=== PATIENT | male | born 2000 | race Caucasian/White ===

== ENCOUNTER 2020-12-20 10:57 | Inpatient (IN) | payer OTHER ==
[2020-12-20] MEDS ORDERED: LACTATED RINGERS SOLUTION 1,000 ML IV STA (11:56)
[2020-12-20] MEDS ORDERED: ACETAMINOPHEN 1000 MG/100 ML VIAL (NON FORMULARY) IVPB ONE (11:56)
[2020-12-20] MEDS ORDERED: FAMOTIDINE 20 MG/50 ML IVPB 20 MG/50 ML MG IVPB ONE ×2 (11:56→12:32)
[2020-12-20] MEDS ORDERED: ACETAMINOPHEN INJECTION 100 ML IVPB ONE ×2 (12:31→22:30)
[2020-12-20 13:46] LABS: BASO % 0.4 % (0-2.0); HEMATOCRIT 45.4 % (35.4-49); HEMOGLOBIN 15.2 GM/dL (11.7-16.9); LYMPH % 5.3 % (8-40); MCH 27.8 pg (25.7-33.7); MCHC 33.4 g/dl (32.0-35.9); MEAN CELL VOLUME 83.1 fl (80-96); MEAN PLT VOLUME 9.9 fl (7.5-11.1); MONO % 5.6 % (3.8-10.2); NEUT % 88.7 % (42.8-82.8); PLATELET COUNT 254 K/MM3 (134-434); RBC 5.47 M/mm3 (4.00-5.60); RDW 13.4 % (11.9-15.9); WHITE BLOOD COUNT 27.9 K/mm3 (4.0-10.0)
[2020-12-20 14:08] LABS: POTASSIUM 3.9 mmol/L (3.5-5.1)
[2020-12-20 14:09] LABS: CALCIUM 9.8 mg/dL (8.5-10.1)
[2020-12-20 14:10] LABS: ALBUMIN 4.3 g/dl (3.4-5.0); BLOOD UREA NITROGEN 8.1 mg/dL (7-18)
[2020-12-20 14:13] LABS: CREATININE 0.8 mg/dL (0.55-1.3)
[2020-12-20 14:14] LABS: BILIRUBIN,TOTAL 1.5 mg/dL (0.2-1)
[2020-12-20 14:31] LABS: ANISOCYTOSIS 1+; MACROCYTOSIS 0; PLATELET ESTIMATE NORMAL
[2020-12-20] MEDS ORDERED: PIPERACILLIN/TAZOB 3.375 GM 3.375 GM/50 ML BAG IVPB ONE (16:28)
[2020-12-20] MEDS ORDERED: PIPERACILLIN/TAZOB 3.375 GM 3.375 GM in DEXTROSE 5%-WATER - 50 ML IVPB ONE (16:30)
[2020-12-20] MEDS ORDERED: SODIUM CHLORIDE 1,000 ML IV SCH (17:45)
[2020-12-20 18:14] LABS: URINE APPEARANCE CLEAR; URINE BILIRUBIN NEGATIVE (NEGATIVE); URINE COLOR YELLOW; URINE GLUCOSE (UA) NEGATIVE (NEGATIVE); URINE KETONE NEGATIVE (NEGATIVE); URINE LEUK ESTERASE NEGATIVE (NEGATIVE); URINE NITRITE NEGATIVE (NEGATIVE); URINE PROTEIN NEGATIVE (NEGATIVE); URINE UROBILINOGEN 0.2 mg/dL (0.2-1.0)
[2020-12-20] MEDS ORDERED: ACETAMINOPHEN 1000 MG/100 ML VIAL (NON FORMULARY) IVPB PRN (18:15)
[2020-12-20] MEDS ORDERED: ROCURONIUM BROMIDE 100 MG/10 ML VIAL ONE (20:24)
[2020-12-20] MEDS ORDERED: SUCCINYLCHOLINE CHLORIDE 200 MG/10 ML SYRINGE ONE (20:24)
[2020-12-20] MEDS ORDERED: MIDAZOLAM HCL 2 MG/2 ML SINGLE DOSE VIAL ONE (20:24)
[2020-12-20] MEDS ORDERED: ONDANSETRON 4 MG/2 ML VIAL ONE (20:24)
[2020-12-20] MEDS ORDERED: PROPOFOL 20 ML ONE ×2 (20:25)
[2020-12-20] MEDS ORDERED: morphine SULFATE 4 MG/ML VIAL IVPB PRN (20:53)
[2020-12-20] MEDS ORDERED: oxyCODONE HCL 5 MG TABLET PO PRN (20:53)
[2020-12-20] MEDS ORDERED: NEOSTIGMINE METHYLSULFATE 0.5 MG/ML - 10 ML MDV ONE (21:37)
[2020-12-20] MEDS ORDERED: GLYCOPYRROLATE 0.2 MG/1 ML VIAL ONE (21:37)
[2020-12-20] MEDS: ACETAMINOPHEN 1000 MG/100 ML VIAL (NON FORMULARY) IVPB PRN (22:40)
[2020-12-20] MEDS: SODIUM CHLORIDE 1,000 ML IV SCH (22:40)
[2020-12-21 01:40] VITALS: BMI 19.9
[2020-12-21] MEDS ORDERED: PIPERACILLIN/TAZOB 2.25 GM 2.25 GM in DEXTROSE 5%-WATER - 50 ML IVPB SCH (02:00)
[2020-12-21] MEDS ORDERED: DEXTROSE 5%-WATER - 50 ML IVPB ONE ×3 (02:01→18:14)
[2020-12-21] MEDS ORDERED: PIPERACILLIN/TAZOBACTAM 3.375 GM VIAL IVPB ONE ×3 (02:01→18:14)
[2020-12-21] MEDS: PIPERACILLIN/TAZOB 3.375 GM 3.375 GM in DEXTROSE 5%-WATER - 50 ML IVPB SCH ×3 (02:05→18:25)
[2020-12-21] MEDS ORDERED: FAMOTIDINE 20 MG/50 ML IVPB 20 MG/50 ML MG IVPB ONE ×2 (06:00)
[2020-12-21] MEDS: ACETAMINOPHEN 1000 MG/100 ML VIAL (NON FORMULARY) IVPB PRN (08:45)
[2020-12-21] MEDS: ENOXAPARIN NA (PORCINE) 40 MG/0.4 ML DISP.SYRIN SQ SCH (10:10)
[2020-12-21 13:29] LABS: BASO % 0.4 % (0-2.0); EOS % 0.2 % (0-4.5); HEMOGLOBIN 12.1 GM/dL (11.7-16.9); LYMPH % 9.9 % (8-40); MCH 27.3 pg (25.7-33.7); MCHC 32.7 g/dl (32.0-35.9); MEAN CELL VOLUME 83.3 fl (80-96); MEAN PLT VOLUME 9.3 fl (7.5-11.1); MONO % 7.7 % (3.8-10.2); NEUT % 81.8 % (42.8-82.8); PLATELET COUNT 236 K/MM3 (134-434); RBC 4.44 M/mm3 (4.00-5.60); RDW 13.4 % (11.9-15.9); WHITE BLOOD COUNT 16.9 K/mm3 (4.0-10.0)
[2020-12-21 13:52] LABS: POTASSIUM 3.4 mmol/L (3.5-5.1)
[2020-12-21 13:54] LABS: CALCIUM 8.5 mg/dL (8.5-10.1)
[2020-12-21 13:57] LABS: CREATININE 0.6 mg/dL (0.55-1.3)
[2020-12-21 13:59] LABS: BILIRUBIN,TOTAL 1.9 mg/dL (0.2-1)
[2020-12-21 14:07] LABS: TOT PROT 5.9 g/dl (6.4-8.2)
[2020-12-21] MEDS: SODIUM CHLORIDE 1,000 ML IV SCH ×2 (16:29→22:51)
[2020-12-21] MEDS: KCL 10 MEQ IVPB 10 MEQ/100 ML INFUS.BAG IVPB SCH ×2 (19:37→21:05)
[2020-12-22] MEDS ORDERED: PIPERACILLIN/TAZOB 3.375 GM 3.375 GM in DEXTROSE 5%-WATER - 50 ML IVPB SCH (02:00)
[2020-12-22] MEDS ORDERED: PIPERACILLIN/TAZOB 2.25 GM 2.25 GM in DEXTROSE 5%-WATER - 50 ML IVPB SCH (02:00)
[2020-12-22] MEDS ORDERED: PIPERACILLIN/TAZOBACTAM 3.375 GM VIAL IVPB ONE ×2 (02:09→09:40)
[2020-12-22] MEDS ORDERED: DEXTROSE 5%-WATER - 50 ML IVPB ONE ×2 (02:09→09:40)
[2020-12-22] MEDS: PIPERACILLIN/TAZOB 3.375 GM 3.375 GM in DEXTROSE 5%-WATER - 50 ML IVPB SCH ×2 (02:12→09:41)
[2020-12-22 09:26] LABS: BASO % 0.8 % (0-2.0); HEMOGLOBIN 13.1 GM/dL (11.7-16.9); LYMPH % 15.3 % (8-40); MCH 27.9 pg (25.7-33.7); MCHC 33.6 g/dl (32.0-35.9); MEAN CELL VOLUME 83.1 fl (80-96); MEAN PLT VOLUME 9.3 fl (7.5-11.1); MONO % 9.5 % (3.8-10.2); NEUT % 72.4 % (42.8-82.8); PLATELET COUNT 280 K/MM3 (134-434); RDW 13.7 % (11.9-15.9); WHITE BLOOD COUNT 10.9 K/mm3 (4.0-10.0)
[2020-12-22] MEDS: ENOXAPARIN NA (PORCINE) 40 MG/0.4 ML DISP.SYRIN SQ SCH (09:41)
[2020-12-22 09:44] LABS: POTASSIUM 3.7 mmol/L (3.5-5.1)
[2020-12-22 10:06] LABS: TOT PROT 6.4 g/dl (6.4-8.2)
[2020-12-22 10:26] LABS: ALBUMIN 3.2 g/dl (3.4-5.0); CALCIUM 9.1 mg/dL (8.5-10.1); MAGNESIUM 1.9 mg/dL (1.8-2.4)
[2020-12-22 10:28] LABS: CREATININE 0.6 mg/dL (0.55-1.3)
[2020-12-22 10:29] LABS: PHOSPHOROUS 3.6 mg/dL (2.5-4.9)
[2020-12-22 10:30] LABS: BILIRUBIN,TOTAL 1.3 mg/dL (0.2-1)
[2020-12-22 11:41] VITALS: BP 132/76; PULSE 78; TEMP 98.9
== END 2020-12-22 15:57 | disposition home or self-care (01) | DRG 221 ==
LOC: JER 10:57 → JERBED 17:46 → J6S 23:39
PROVIDERS: ATTEND Student in an Organized Health Care Education/Training Program
PROC: 0DNU3ZZ Release Omentum, Percutaneous Approach (ICD-10-PCS; 2020-12-20)
PROC: 0DB Gastrointestinal System, Excision (ICD-10-PCS; 2020-12-20)
PROC: 0DTJ4ZZ Resection of Appendix, Percutaneous Endoscopic Approach (ICD-10-PCS; principal; 2020-12-20 20:20)
DX: K35.891 Other acute appendicitis without perforation, with gangrene (principal); R10.31 Right lower quadrant pain
CPT/HCPCS: 36415; 74177-TC; 80053; 81003; 83690; 83735; 84100; 85025; 86850; 86900; 86901; 87086; 87491; 87591; 88304-TC; 94760; 99285-25; C9803; J0131; Q9967; U0003